=== PATIENT | female | born 1950 | race Caucasian/White ===

== ENCOUNTER 2017-04-06 00:44 | Inpatient (IN) | payer OTHER, MEDICAID, MEDICARE ==
[2017-04-06] VITALS (14 sets, daily range): BP systolic 100–206; BP diastolic 66–91; PULSE 60–85; RESP 16–18; TEMP 96.2–98.1; O2SAT 95–100
[~2017-04-06] VITALS: Ht 165.1 cm; Wt 91.0 kg
[2017-04-06] MEDS ORDERED: SODIUM CHLOR 0.9% 1000 ML INJ 1,000 ML IV ONE (00:57)
--- NOTE | 2017-04-06 01:04 | PD ---
HPI Chief Complaint: Stroke Alert Time Seen by Provider: 00:48 Travel History International Travel<30 days: No Contact w/Intl Traveler<30days: No Traveled to known affect area: No History of Present Illness HPI The patient was seen and examined in the presence of the nurse. This patient presents as a stroke alert. She was in her normal state of health talking on the phone approximately 30 minutes ago and started slurring her words. She is not having any other deficit or complaint. No weakness or change in her baseline diabetic neuropathy. No confusion or headache. No priors to stroke. She has been off any medication for one year. She is hypertensive and type II diabetic. Accu-Chek 340. Systolic blood pressure 192. Symptoms severity is moderate. Duration 30 minutes. No alleviating factors. PFSH Social History Alcohol Use: No Tobacco Use: No Substance Use: No Allergies-Medications (Allergen,Severity, Reaction): Coded Allergies: Penicillins (Verified Allergy, Unknown, 04/06/17) azithromycin (Verified Allergy, Unknown, 04/06/17) sulfamethoxazole (Verified Allergy, Unknown, 04/06/17) trimethoprim (Verified Allergy, Unknown, 04/06/17) Reported Meds & Prescriptions Reported Meds & Active Scripts Active No Active Prescriptions or Reported Medications Review of Systems General / Constitutional: No: Fever Eyes: No: Visual changes HENT: No: Headaches Cardiovascular: No: Chest Pain or Discomfort Respiratory: No: Shortness of Breath Gastrointestinal: No: Abdominal Pain Genitourinary: No: Dysuria Musculoskeletal: No: Pain Skin: No Rash Neurologic: Positive: Slurred Speech, No: Weakness Psychiatric: No: Depression Endocrine: No: Polydipsia Hematologic/Lymphatic: No: Easy Bruising Physical Exam Narrative GENERAL: Well-nourished, well-developed patient in no apparent distress. SKIN: Focused skin assessment reveals no rash and nodules. Skin is Warm and dry. HEAD: Atraumatic. Normocephalic. EYES: Pupils equal and round. No scleral icterus. No injection or drainage. ENT: No nasal bleeding or discharge. Mucous membranes pink and moist. NECK: Trachea midline. No JVD. CARDIOVASCULAR: Regular rate and rhythm. No murmur appreciated. RESPIRATORY: No accessory muscle use. Clear to auscultation. Breath sounds equal bilaterally. GASTROINTESTINAL: Abdomen soft, non-tender, nondistended. Hepatic and splenic margins not palpable. MUSCULOSKELETAL: No obvious deformities. No clubbing. No cyanosis. No edema. NEUROLOGICAL: Awake and alert. No obvious cranial nerve deficits. Motor grossly within normal limits. Has noticeable slurring of speech. She does have sensation to sharp and light touch in the feet PSYCHIATRIC: Appropriate mood and affect; insight and judgment normal. Data Data Last Documented VS Vital Signs Date Time Temp Pulse Resp B/P (MAP) Pulse Ox O2 Delivery O2 Flow Rate FiO2 04/06/17 00:58 99 21 04/06/17 00:50 89 Nasal Cannula 2.[address] Brain W/O Iv Contrast(Rout) (04/06/17 ) Diet Npo (04/06/17 Breakfast) Activity Bed Rest (04/06/17 ) Electrocardiogram (04/06/17 ) I-Stat Creatinine (04/06/17 00:57) I-Stat Profile (04/06/17 00:57) Prothrombin Time / Inr (Pt) (04/06/17 00:57) Act Partial Throm Time (Ptt) (04/06/17 00:57) Complete Blood Count With Diff (04/06/17 00:57) Fibrinogen (04/06/17 00:57) Ua Includes Microscopic (04/06/17 00:57) Drug Screen, Random Urine (04/06/17 00:57) Consult Neurology (04/06/17 ) Blood Glucose (04/06/17 00:57) Ecg Monitoring (04/06/17 00:57) Neuro Checks Q2HX12,Q4H (04/06/17 00:57) Nursing Bedside Swallow Assess .ONCE (04/06/17 00:57) Iv Access Insert/Monitor (04/06/17 00:57) NPO (04/06/17 00:57) Oximetry (04/06/17 00:57) Oxygen Administration (04/06/17 00:57) Sodium Chlor 0.9% 1000 Ml Inj (Ns 1000 M (04/06/17 00:57) Resp Oxygen Vaibhav C Titrat 1-4 L (04/06/17 00:57) Creatine Kinase (Cpk) (04/06/17 01:03) Troponin I (04/06/17 01:03) Aspirin Supp (Aspirin Supp) (04/06/17 01:15) Insulin Human Regular Inj (Novolin R Inj (04/06/17 01:15) (Hub Use Only)Inp Phy Cons/Ref (04/06/17 ) Place In Observation (04/06/17 ) Vital Signs (Adult) Q2HX12,Q4H (04/06/17 02:06) Nih Stroke Scale - Nihss .Daily (04/06/17 02:06) Neuro Checks Q2HX12,Q4H (04/06/17 02:06) Notify Dr: Other (04/06/17 02:06) Remove Urinary Catheter .ONCE (04/06/17 02:06) Case Management Consult (04/06/17 ) Activity Oob Ad Gretta (04/06/17 02:06) Nursing Bedside Swallow Assess .ONCE (04/06/17 02:06) Scd Bilateral/Knee High ANTONIO.QSHIFT (04/06/17 02:06) Hemoglobin (Hgb) A1c (04/06/17 02:06) Lipid Profile (04/07/17 06:00) ^ Hold Medication (04/06/17 02:06) Sodium Chloride 0.9% Flush (Ns Flush) (04/06/17 09:00) Sodium Chloride 0.9% Flush (Ns Flush) (04/06/17 02:15) Bedside Glucose ANTONIO.AC&HS (04/06/17 02:06) ^ Discontinue Insulin Orders (04/06/17 02:06) Insulin Aspart Supplemtl Scale (Novolog (04/06/17 07:00) Dextrose 50% In Dale (Vial) Inj (D50w (Vi (04/06/17 02:15) Glucagon Inj (Glucagon Inj) (04/06/17 02:15) [employer]orer [employer] / Telemetry ANTONIO.Q8H (04/06/17 02:06) Consult Stoke Navigator (04/06/17 ) Admit Order (Ed Use Only) (04/06/17 02:11) Labs Laboratory Tests Test 04/06/17 00:45 04/06/17 01:23 White Blood Count 12.0 TH/MM3 Red Blood Count 5.40 MIL/MM3 Hemoglobin 16.1 GM/DL Bedside Hemoglobin 15.6 G/DL Hematocrit 47.0 % Bedside Hematocrit 46.0 % Mean Corpuscular Volume 87.2 FL Mean Corpuscular Hemoglobin 29.8 PG Mean Corpuscular Hemoglobin Concent 34.2 % Red Cell Distribution Width 13.4 % Platelet Count 171 TH/MM3 Mean Platelet Volume 9.7 FL CBC Comment AUTO DIFF Differential Total Cells Counted 100 Neutrophils % (Manual) 42 % Lymphocytes % 49 % Monocytes % 4 % Eosinophils % 3 % Basophils % 1 % Neutrophils # (Manual) 5.2 TH/MM3 Metamyelocytes 1 % Differential Comment FINAL DIFF MANUAL Smudge Cells PRESENT Platelet Estimate NORMAL Platelet Morphology Comment NORMAL Red Cell Morphology Comment NORMAL Bedside Sodium 135 MMOL/L Bedside Potassium 4.0 MMOL/L Bedside Chloride 104 MMOL/L Bedside Blood Urea Nitrogen 8 MG/DL Bedside Creatinine 0.6 MG/DL Bedside Glucose 322 MG/DL Prothrombin Time 9.9 SEC Prothromb Time International Ratio 0.9 RATIO Activated Partial Thromboplast Time 22.6 SEC Fibrinogen 330 mg/dL Total Creatine Kinase 51 U/L Troponin I LESS THAN 0.02 NG/ML MDM Medical Decision Making Medical Screen Exam Complete: Yes Emergency Medical Condition: Yes Medical Record Reviewed: Yes Differential Diagnosis CVA, TIA, overmedication Narrative Course I have reviewed the patient's electronic medical record. I ordered a stroke alert protocol Patient went emergently to CT I reviewed with neurologist Dr. Krishnamurthy He does not recommend TPA Symptoms are isolated to speech slurring with no motor weakness Brain CT is negative CBC is normal Metabolic profile is normal Coagulation studies are normal I reviewed her EKG which shows sinus rhythm without ectopy Extended cardiac monitoring shows sinus rhythm without ectopy Patient will require admission for stroke evaluation. I gave her rectal aspirin and 8 units IV regular insulin Discussed with hospitalist will admit Critical Care Narrative Aggregate critical care time was 35 minutes. Time to perform other separately billable procedures was not included in the critical care time. My time did not include minutes spent treating any other patients simultaneously or on activities that did not directly contribute to the patient's treatment. The services I provided to this patient were to treat and/or prevent clinically significant deterioration that could result in: Brain stem herniation, cardiopulmonary arrest, permanent neurologic deficit I provided critical care services requiring my management, as noted below: Chart data review, documentation time, medication orders and management, vital sign assessments/reviewing monitor data, ordering and reviewing lab tests, ordering and interpreting/reviewing x-rays and diagnostic studies, care of the patient and discussion of the patient with the admitting physicians. Diagnosis Primary Impression: Ischemic cerebrovascular accident (CVA) of frontal lobe Additional Impressions: Accelerated hypertension Hyperglycemia due to type 2 diabetes mellitus Qualified Codes: E11.65 - Type 2 diabetes mellitus with hyperglycemia Admitting Information Admitting Physician Requests: Admit Scripts No Active Prescriptions or Reported Meds Dorian Riley MD Apr 06, 2017 01:04
[2017-04-06 01:07] LABS: MEAN CELL VOLUME 87.2 FL (80.0-100.0); MEAN CORPUSCULAR HEMOGLOBIN 29.8 PG (27.0-34.0); MEAN CORPUSCULAR HGB CONC 34.2 % (32.0-36.0); PLATELET COUNT 171 TH/MM3 (150-450); RED CELL DISTRIBUTION WIDTH 13.4 % (11.6-17.2)
[2017-04-06 01:09] LABS: HEMO FLAGS AUTO DIFF
--- NOTE | 2017-04-06 01:09 | RADRPT ---
EXAM DATE/TIME: 04/06/2017 00:55 [facility] COMPARISON: No previous studies available for comparison. INDICATIONS : Stroke Alert. Slurred speech. RADIATION DOSE: 36.65 CTDIvol (mGy) MEDICAL HISTORY : Hypertension. Diabetes mellitus type 2. Deep venous thrombosis. SURGICAL HISTORY : None. ENCOUNTER: Initial ACUITY: 1 day PAIN SCALE: 0/10 LOCATION: cranial TECHNIQUE: Multiple contiguous axial images were obtained of the head. Using automated exposure control and adj ustment of the mA and/or kV according to patient size, radiation dose was kept as low as reasonably a chievable to obtain optimal diagnostic quality images. DICOM format image data is available electro nically for review and comparison. FINDINGS: CEREBRUM: The ventricles are normal for age. No evidence of midline shift, mass lesion, hemorrhage or acute in farction. No extra-axial fluid collections are seen. POSTERIOR FOSSA: The cerebellum and brainstem are intact. The 4th ventricle is midline. The cerebellopontine angle i s unremarkable. EXTRACRANIAL: The visualized portion of the orbits is intact. SKULL: The calvaria is intact. No evidence of skull fracture. CONCLUSION: 1. No acute intracranial abnormalities. Findings called by Dr. Bolton to Dr. Riley at 1:06am. Hosea Bolton MD on April 06, 2017 at 1:02 Board Certified Radiologist. This report was verified electronically.
[2017-04-06] MEDS ORDERED: INSULIN HUMAN REGULAR 1,000 UNITS/10 ML VIAL IV PUSH ONE (01:15)
[2017-04-06] MEDS ORDERED: ASPIRIN 300 MG SUPP RECTAL ONE (01:15)
[2017-04-06 01:44] LABS: APTT (PATIENT) 22.6 SEC (24.3-30.1); INTERNATIONAL NORMALIZED RATIO 0.9 RATIO; PROTHROMBIN TIME - PATIENT 9.9 SEC (9.8-11.6)
[2017-04-06 01:44] LABS: BASOPHILS 1 % (0-2); EOSINOPHILS 3 % (0-4); METAMYELOCYTES 1 % (0-1); NEUTROPHIL # MANUAL DIFF 5.2 TH/MM3 (1.8-7.7); POLYS (SEG NEUTROPHILS) 42 % (16-70); SCAN/DIFF FINAL DIFF MANUAL; WBC DIFF SAMPLE 100
[2017-04-06 01:45] LABS: SMUDGE CELLS PRESENT PRESENT
[2017-04-06 01:46] LABS: PLATELET ESTIMATE SMEAR NORMAL (NORMAL); PLATELET MORPHOLOGY NORMAL (NORMAL)
[2017-04-06 01:51] LABS: CREATINE KINASE 51 U/L (26-192)
[2017-04-06] MEDS ORDERED: GLUCAGON 1 MG/ML VIAL OTHER PRN (02:15)
[2017-04-06] MEDS ORDERED: SODIUM CHLORIDE 0.9% FLUSH 5 ML FLUSH IV FLUSH PRN (02:15)
[2017-04-06] MEDS ORDERED: DEXTROSE 50% IN WATER 50 ML VIAL(D50) IV PUSH PRN (02:15)
[2017-04-06 03:00] LABS: BACTERIA, URINE MOD /hpf; BLOOD, URINE NEG (NEG); GLUCOSE,URINE 1000 mg/dL (NEG); KETONE, URINE 10 mg/dL (NEG); MUCUS URINE FEW /lpf (OCC); NITRITE,URINE POS (NEG); PH, URINE 5.5 (5.0-8.5); SQUAMOUS EPITHELIAL CELL URINE 1 /hpf (0-5); URINE COLOR YELLOW (YELLW/STRAW)
--- NOTE | 2017-04-06 04:10 | HHI.HP ---
HPI Service [facility] Primary Care Physician No Primary Care Physician Admission Diagnosis Acute ischemic CVA Diagnoses: Chief Complaint: slurred speech Travel History International Travel<30 Days: No Contact w/Intl Traveler <30 Da: No Traveled to Known Affected Are: No History of Present Illness Written by MARVIN Mendes acting as scribe for [Andre] on 04/06/17 at 04: 01. 66 y/o female with a history of HTN, HLD and DM, off medications for 1 year presented to the ED with slurred speech. She states about 11:30 tonight she began to have slurred speech and tingling in her cheeks. She states recently she has had pain in her right eye, intermittently, but no vision loss. She denies any weakness in her extremities, chest pain, sob, fever or chills. She states she moved here 1 year ago and that is when she stopped taking all her medications. Review of Systems Except as stated in HPI: all other systems reviewed are Neg Past Family Social History Past Medical History HTN DM HLD Past Surgical History Common bile duct stent Cholecystectomy Back surgery x 2 elbow surgery hysterectomy from ectopic Bladder repair Seizures as a child Reported Medications Reported Meds & Active Scripts Active No Active Prescriptions or Reported Medications Allergies: Coded Allergies: nitrofurantoin (Verified Allergy, Intermediate, hives, 04/06/17) Penicillins (Verified Allergy, Unknown, 04/06/17) azithromycin (Verified Allergy, Unknown, 04/06/17) sulfamethoxazole (Verified Allergy, Unknown, 04/06/17) trimethoprim (Verified Allergy, Unknown, 04/06/17) Uncoded Allergies: erythromycin (Allergy, Intermediate, hives, 04/06/17) Active Ordered Medications Current Medications Medications (Trade) Dose Ordered Sig/[place] Route Start Time Stop Time Status Last Admin Sodium Chloride 1,000 ml @ 70 mls/hr [id number] ONCE IV 04/06/17 00:57 04/06/17 15:14 04/06/17 00:57 (NS Flush) 2 ml BID IV FLUSH 04/06/17 09:00 (NS Flush) 2 ml UNSCH PRN IV FLUSH 04/06/17 02:15 (NovoLOG SUPPLEMENTAL SCALE) 1 ACHS SQ 04/06/17 07:00 (D50w (Vial) Inj) 50 ml UNSCH PRN IV PUSH 04/06/17 02:15 (Glucagon Inj) 1 mg UNSCH PRN OTHER 04/06/17 02:15 Family History Sister: breast cancer and ovarian cancer Social History Tobacco use: Quit 15 years ago Alcohol use: Denies Physical Exam Vital Signs Vital Signs Date Time Temp Pulse Resp B/P (MAP) Pulse Ox O2 Delivery O2 Flow Rate FiO2 04/06/17 02:36 100 2.00 04/06/17 02:00 82 18 169/71 (103) 99 Nasal Cannula 2.00 04/06/17 01:00 85 16 206/91 (129) 100 Nasal Cannula 2.00 04/06/17 00:58 99 21 04/06/17 00:54 100 21 04/06/17 00:50 89 100 Nasal Cannula 2.00 04/06/17 00:50 99 Nasal Cannula 2.00 Physical Exam GENERAL: This is a well-nourished, well-developed patient, in no apparent distress. SKIN: No rashes, ecchymoses or lesions. Cool and dry. HEAD: Atraumatic. Normocephalic. EYES: Pupils equal round and reactive. Extraocular motions intact. ENT: Nose without bleeding, purulent drainage or septal hematoma. Airway patent. NECK: Trachea midline. No JVD or lymphadenopathy. Supple, nontender, no meningeal signs. CARDIOVASCULAR: Regular rate and rhythm without murmurs, gallops, or rubs. RESPIRATORY: Clear to auscultation. Breath sounds equal bilaterally. No wheezes , rales, or rhonchi. GASTROINTESTINAL: Abdomen soft, non-tender, nondistended. No hepato-splenomegaly , or palpable masses. No guarding. MUSCULOSKELETAL: Extremities without clubbing, cyanosis, or edema. No joint tenderness, effusion, or edema noted. No calf tenderness. NEUROLOGICAL: Awake and alert. Cranial nerves II through XII intact. Motor and sensory grossly within normal limits. Five out of 5 muscle strength in all muscle groups. Slurred speech. Laboratory Laboratory Tests Test 04/06/17 00:45 04/06/17 01:23 04/06/17 02:46 White Blood Count 12.0 Red Blood Count 5.40 Hemoglobin 16.1 Bedside Hemoglobin 15.6 Hematocrit 47.0 Bedside Hematocrit 46.0 Mean Corpuscular Volume 87.2 Mean Corpuscular Hemoglobin 29.8 Mean Corpuscular Hemoglobin Concent 34.2 Red Cell Distribution Width 13.4 Platelet Count 171 Mean Platelet Volume 9.7 CBC Comment AUTO DIFF Differential Total Cells Counted 100 Neutrophils % (Manual) 42 Lymphocytes % 49 Monocytes % 4 Eosinophils % 3 Basophils % 1 Neutrophils # (Manual) 5.2 Metamyelocytes 1 Differential Comment FINAL DIFF MANUAL Smudge Cells PRESENT Platelet Estimate NORMAL Platelet Morphology Comment NORMAL Red Cell Morphology Comment NORMAL Bedside Sodium 135 Bedside Potassium 4.0 Bedside Chloride 104 Bedside Blood Urea Nitrogen 8 Bedside Creatinine 0.6 Bedside Glucose 322 Prothrombin Time 9.9 Prothromb Time International Ratio 0.9 Activated Partial Thromboplast Time 22.6 Fibrinogen 330 Total Creatine Kinase 51 Troponin I LESS THAN 0.02 Urine Color YELLOW Urine Turbidity HAZY Urine pH 5.5 Urine Specific Viper 1.019 Urine Protein NEG Urine Glucose (UA) 1000 Urine Ketones 10 Urine Occult Blood NEG Urine Nitrite POS Urine Bilirubin NEG Urine Urobilinogen LESS THAN 2.0 Urine Leukocyte Esterase SMALL Urine RBC 2 Urine WBC 24 Urine Squamous Epithelial Cells 1 Urine Bacteria MOD Urine Mucus FEW Urine Opiates Screen NEG Urine Barbiturates Screen NEG Urine Amphetamines Screen NEG Urine Benzodiazepines Screen NEG Urine Cocaine Screen NEG Urine Cannabinoids Screen NEG Result Diagram: 04/06/17 0045 Imaging Last Impressions Head CT 04/06/17 0000 Signed Impressions: Service Date/Time: March 00:55 - CONCLUSION: 1. No acute intracranial abnormalities. Findings called by Dr. Bolton to Dr. Riley at 1:06am. MD Latasha Gallegoi VTE Risk Assessment Caprini VTE Risk Assessment: Mod/High Risk (score >= 2) Caprini Risk Assessment Model Point Value = 1 Point Value = 2 Point Value = 3 Point Value = 5 Age 41-60 Minor surgery BMI > 25 kg/m2 Swollen legs Varicose veins or History of unexplained or recurrent spontaneous Oral contraceptives or hormone replacement Sepsis (< 1 month) Serious lung disease, including pneumonia (< 1 month) Abnormal pulmonary function Acute myocardial infarction Congestive heart failure (< 1 month) History of inflammatory bowel disease Medical patient at bed rest Age 61-74 Arthroscopic surgery Major open surgery (> 45 min) Laparoscopic surgery (> 45 min) Malignancy Confined to bed (> 72 hours) Immobilizing plaster cast Central venous access Age >= 75 History of VTE Family history of VTE Factor V Leiden Prothrombin [id number] Lupus anticoagulant Anticardiolipin antibodies Elevated serum homocysteine Heparin-induced thrombocytopenia Other congenital or acquired thrombophilia Stroke (< 1 month) Elective arthroplasty Hip, pelvis, or leg fracture Acute spinal cord injury (< 1 month) Prophylaxis Regimen Total Risk Factor Score Risk Level Prophylaxis Regimen 0-1 Low Early ambulation 2 Moderate Order ONE of the following: *Sequential Compression Device (SCD) *Heparin 5000 units SQ BID 3-4 Higher Order ONE of the following medications: *Heparin 5000 units SQ TID *Enoxaparin/Lovenox 40 mg SQ daily (WT < 150 kg, CrCl > 30 mL/min) *Enoxaparin/Lovenox 30 mg SQ daily (WT < 150 kg, CrCl > 10-29 mL/min) *Enoxaparin/Lovenox 30 mg SQ BID (WT < 150 kg, CrCl > 30 mL/min) AND/OR *Sequential Compression Device (SCD) 5 or more Highest Order ONE of the following medications: *Heparin 5000 units SQ TID (Preferred with Epidurals) *Enoxaparin/Lovenox 40 mg SQ daily (WT < 150 kg, CrCl > 30 mL/min) *Enoxaparin/Lovenox 30 mg SQ daily (WT < 150 kg, CrCl > 10-29 mL/min) *Enoxaparin/Lovenox 30 mg SQ BID (WT < 150 kg, CrCl > 30 mL/min) AND *Sequential Compression Device (SCD) Assessment and Plan Problem List: (1) Hyperglycemia due to type 2 diabetes mellitus ICD Code: E11.65 - Type 2 diabetes mellitus with hyperglycemia Status: Acute (2) Accelerated hypertension ICD Code: I10 - Essential (primary) hypertension Status: Acute (3) Ischemic cerebrovascular accident (CVA) of frontal lobe ICD Code: I63.9 - Cerebral infarction, unspecified Status: Acute Assessment and Plan 66 y/o female with a history of HTN, HLD and DM, off medications for 1 year presented to the ED with slurred speech. CVA, patient with slurred speech Head CT reviewed and is unremarkable -Consult neurology -MRI/MRA ordered -2D echo ordered -US carotids ordered -ASA daily -PT/OT/ST Hyperglycemia, BS 340 on admission -Accu checks with SSI -HGB A1C Accelerated HTN -Allow permissive HTN for now -Patient will need PB meds before discharge -Monitor vitals DVT prophylaxis: Lovenox This note was transcribed by scribe [Liana Villagran]. I, Dr. Jerzy Powell personally performed the history, physical exam, and medical decision making; and confirmed the accuracy of the information in the transcribed note. Authenticated by Dr. Jerzy Powell on 04/06/17 at 04:01. changed to full admit- pt has persistent slurred speech, CVA, rather than TIA Discussed Condition With Patient and ED physician Problem Qualifiers (1) Hyperglycemia due to type 2 diabetes mellitus: Qualified Codes: E11.65 - Type 2 diabetes mellitus with hyperglycemia Liana Villagran Apr 06, 2017 04:09 Jerzy oPwell MD Apr 07, 2017 08:13
[2017-04-06] MEDS: ENOXAPARIN SODIUM 40 MG/0.4 ML SYRINGE SQ SCH (06:45)
[2017-04-06] MEDS: INSULIN ASPART SUPPLEMENTAL SCALE SQ SCH ×4 (06:54→21:06)
[2017-04-06] MEDS: SODIUM CHLORIDE 0.9% FLUSH 5 ML FLUSH IV FLUSH SCH ×2 (09:00→21:00)
[2017-04-06] MEDS: ASPIRIN EC 325 MG TABEC PO SCH (09:11)
[2017-04-06] MEDS: SODIUM CHLOR 0.9% 1000 ML INJ 1,000 ML IV SCH ×2 (09:13→22:33)
--- NOTE | 2017-04-06 09:28 | RADRPT ---
EXAM DATE/TIME: 04/06/2017 08:36 [facility] COMPARISON: No previous studies available for comparison. INDICATIONS : Cerebrovascular accident. Stroke alert patient with slurred speech. MEDICAL HISTORY : Hypercholesterolemia. Hypertension. Deep vein thrombosis. COPD. Asthma. Diabetes. Post traumatic st ress disorder. Depression. Claustrophobia. SURGICAL HISTORY : Bladder repair. Back surgery. ENCOUNTER: Initial ACUITY: 1 day PAIN SCORE: 0/10 LOCATION: Bilateral neck PEAK SYSTOLIC VELOCITIES (cm/sec): ICA/CCA RATIO: Right: 0.8 Left: 1.3 ICA: Right: 77 Left: 113 CCA: Right: 99 Left: 85 ECA: Right: 107 Left: 130 VERTEBRAL: Right: 36 antegrade Left: 54 antegrade Elevated flow velocities and ICA/CCA ratios have been found to correlate with increased degrees of vessel stenosis, calculated as percentage of diameter relative to a normal segment of distal ICA/CCA FINDINGS: RIGHT CAROTID: No significant stenosis is visualized. Mild plaque is present. The waveforms are within normal limits . LEFT CAROTID: No significant stenosis is visualized. Mild plaque is present. The waveforms are within normal limits . VERTEBRAL ARTERIES: Antegrade flow is seen in both vertebral arteries. MISCELLANEOUS: None. CONCLUSION: Mild bilateral plaque with no evidence of stenosis. Larry Christine MD on April 06, 2017 at 9:25 Board Certified Radiologist. This report was verified electronically.
--- NOTE | 2017-04-06 10:18 | MB ---
cc: CRUMTEREZA DATE OF CONSULTATION: 04/06/2017 HISTORY OF PRESENT ILLNESS A 66-year-old right-handed woman with hypertension, non-insulin diabetes, hypercholesterolemia, fatty liver, stent in her bile duct. About 11:30 last night she felt like her mouth got dry and had some slurred speech which lasted about 7 hours, just seemed to clear up this morning. She also had some numbness on both sides of her face. REVIEW OF SYSTEMS She denied any MO, CABG, stent, angioplasty, atrial fibrillation, Coumadin. She does not take any blood thinners, not even an aspirin a day. No renal or pulmonary, thyroid, lupus, ulcer, cancer, seizure or stroke history. She had some right eye pain by the chart but not currently. She moved here about a year ago. Stopped taking medicines at that time. SOCIAL HISTORY Nonsmoker or drinker, lives by herself, just moved to [place] recently. FAMILY HISTORY Positive for cancer, negative for seizure or stroke. She has not started any new medicines. PAST MEDICAL HISTORY As above also: 1. Bladder repair. 2. By the chart seizures as a child. 3. Back surgery x2. ALLERGIES PENICILLIN, AZITHROMYCIN, SULFA, BACTRIM. MEDICATIONS No medications. PHYSICAL EXAMINATION VITAL SIGNS: 206/91 initially, now 152/66. NECK: No carotid bruits. HEART: Regular rhythm. I do not detect a murmur. NEURO: Pupils are equal, looks like she has had some cataract surgery in the past. Visual cash are full. Extraocular movements intact without nystagmus. Face is symmetric with normal sensation. Tongue was midline. There is no drift. She had normal strength in upper and lower extremities bilaterally. DTRs are 1-2 in the knees bilaterally, maybe a little bit hypo-reflexive on the left knee compared to the right. Toes are downgoing bilaterally. Pinprick and vibratory sense are intact throughout except for some minimal distal pinprick loss in the feet. She says she has neuropathy. She has very coarse tremor on trying to do finger to nose bilaterally, a little bit worse on the right than the left, however, when I did have her hold up her hand she did not another time. Speech is a little bit hesitant, a little bit hoarse but not aphasic at this time. LABORATORY DATA White count was 12, hemoglobin 16, hematocrit 47, platelet count 171. Urine drug screen negative. UA small out of leuko-esterase, 24 white cells, over 1000 glucose. Basic metabolic profile glucose was 322, otherwise normal. Troponin negative. Coags normal. IMAGING STUDIES CAT scan of the brain is normal. EKG Initially showed sinus rhythm. IMPRESSION Possibly TIA. The unusual aspect is this coarse tremor and she had some tingling on both sides of her face. She says she has not tried any new medications. She does not have a psyche history. Will do a stroke workup and just treat her with an aspirin for now. I will be following her with you in the hospital. If she has a UTI, would recommend treating that. She needs better glucose control. MD CHE Caraballo/TLL /9:09 AM /9:53 AM
[2017-04-06] MEDS ORDERED: cefTRIAXone INJ 1,000 MG in SODIUM CHLORIDE 0.9% INJ 100 ML IV SCH (13:00)
--- NOTE | 2017-04-06 13:02 | HHI.PR ---
Addendum to Inpatient Note Addendum Reason: Additional Documentation Additional Information UTI >>start rocephin Inc AST/ALT>> liver U/S chol 322>> hold on statin due to inc LFT Vitor Lunsford MD Apr 06, 2017 13:02
[2017-04-06 13:19] LABS: FREE T4 1.13 NG/DL (0.76-1.46); HDL CHOLESTEROL 54.2 MG/DL (40.0-60.0)
--- NOTE | 2017-04-06 15:51 | RADRPT ---
EXAM DATE/TIME: 04/06/2017 14:39 [facility] COMPARISON: No previous studies available for comparison. INDICATIONS : Abnormal labs. MEDICAL HISTORY : Hypercholesterolemia. Chronic obstructive pulmonary disease. Deep venous thrombosis. Hypertension. As thma. Diabetes. SURGICAL HISTORY : Hysterectomy. Cholecystectomy. Bladder repair. Back surgery. ENCOUNTER: Initial ACUITY: 1 day PAIN SCORE: 0/10 LOCATION: Bilateral upper quadrant .Abnormal MEASUREMENTS: LIVER: 15.3 cm length COMMON DUCT: 6 mm RIGHT KIDNEY: 12.4 x 4.8 x 5.2 cm SPLEEN: 11.6 cm length FINDINGS: LIVER: Normal echotexture without focal lesion or ductal dilatation. COMMON DUCT: No intraluminal mass or stone visualized. GALLBLADDER: Surgically absent PANCREAS: The visualized portions are within normal limits. RIGHT KIDNEY: No hydronephrosis, stone or mass. SPLEEN: Upper limits of normal size without focal mass CONCLUSION: Focally unremarkable sonographic appearance of the liver Narayan Pham MD on April 06, 2017 at 15:46 Board Certified Radiologist. This report was verified electronically.
--- NOTE | 2017-04-06 16:25 | ECHRPT ---
Indication: cva/tia CONCLUSIONS Normal left ventricular size. Wall thickness is normal. The left ventricular systolic function is low normal with an estimated ejection fraction in the rang e of 50- 55%. Trace mitral valve regurgitation. There is trace tricuspid valve regurgitation. The estimated pulmonary arterial pressure is 35 mmHg. BP: 186 / 83 HR: 62 Rhythm: Sinus MEASUREMENTS (Male / Female) Normal Values Technical Quality:Good 2D ECHO LV Diastolic Diameter PLAX 4.1 cm 4.2 - 5.9 / 3.9 - 5.3 cm LV Systolic Diameter PLAX 2.9 cm IVS Diastolic Thickness 0.8 cm 0.6 - 1.0 / 0.6 - 0.9 cm LVPW Diastolic Thickness 0.7 cm 0.6 - 1.0 / 0.6 - 0.9 cm LV Relative Wall Thickness 0.4 LA Systolic Diameter LX 3.3 cm 3.0 - 4.0 / 2.7 - 3.8 cm LV Ejection Fraction MOD 4C 50.0 % LV Cardiac Index MOD 4C 1078.8 cm/minm LV Ejection Fraction 4C AL 51.4 % LV Cardiac Index 4C AL 1172.7 cm/minm M-MODE Aortic Root Diameter MM 2.2 cm AV Cusp Separation MM 1.5 cm DOPPLER Mitral E Point Velocity 101.0 cm/s Mitral A Point Velocity 82.9 cm/s Mitral E to A Ratio 1.2 LV E' Lateral Velocity 8.8 cm/s Mitral E to LV E' Lateral Ratio 11.5 LV E' Septal Velocity 6.7 cm/s Mitral E to LV E' Septal Ratio 15.0 TR Peak Velocity 295.0 cm/s TR Peak Gradient 34.8 mmHg FINDINGS LEFT VENTRICLE Normal left ventricular size. Wall thickness is normal. The left ventricular systolic function is low normal with an estimated ejection fraction in the rang e of 50- 55%. RIGHT VENTRICLE Normal right ventricular size and systolic function. LEFT ATRIUM The left atrial size is normal. RIGHT ATRIUM The right atrial size is normal. ATRIAL SEPTUM Normal atrial septal thickness without atrial level shunting by limited color doppler interrogation. AORTA The aortic root and proximal ascending aorta are normal in size on limited imaging. MITRAL VALVE Trace mitral valve regurgitation. AORTIC VALVE Trileaflet aortic valve. No aortic valve stenosis or regurgitation. TRICUSPID VALVE There is trace tricuspid valve regurgitation. The estimated pulmonary arterial pressure is 35 mmHg. PULMONARY VALVE The pulmonary valve is not well visualized. VESSELS The inferior vena cava is normal in size. PERICARDIUM No pericardial effusion. Davy Aguilar MD, FACC (Electronically Signed) Final Date:06 April 2017 16:24
[2017-04-06 17:00] LABS: HEMOGLOBIN A1a 1.3 %; HEMOGLOBIN A1b 1.1 %; HEMOGLOBIN Ao 75.3 %; HEMOGLOBIN F 2.1 %; HEMOGLOBIN LA1C 3.2 %
[2017-04-06] MEDS: LEVOFLOXACIN 500 MG PREMIX INJ 100 ML IV SCH (18:31)
[2017-04-06] MEDS ORDERED: GADODIAMIDE PF 287 MG/ML 20 ML VIAL (for RAD MRI) IVCONTRAST ONE (20:12)
--- NOTE | 2017-04-06 20:33 | RADRPT ---
EXAM DATE/TIME: 04/06/2017 19:23 [facility] COMPARISON: MRI BRAIN W & W/O CONTRAST, April 06, 2017, 19:23. INDICATIONS : CVA. Slurred speech. MEDICAL HISTORY : Hypertension. Diabetes mellitus type 2. Chronic obstructive pulmonary disease. Asthma. SURGICAL HISTORY : Cholecystectomy. Hysterectomy. Knee surgery, liver stent, back surgeries and bladder repair. ENCOUNTER: Initial ACUITY: 1 day PAIN SCORE: 0/10 LOCATION: Head. Please note a normal MRA of the brain does not entirely exclude the possibility of a small aneurysm, nor the possibility of distal intracranial vessel disease. TECHNIQUE: 3D time of flight MRA was performed. Source images, multiplanar STS MIP, and 3D volume MIP reconstru ctions were reviewed. FINDINGS: There is excellent visualization of the major intracranial arteries out to the second-order branch ve ssels. There is no evidence for aneurysm, vessel truncation or stenosis, and no evidence for vascula r malformation. CONCLUSION: Normal examination. Narayan Galan MD on April 06, 2017 at 20:30 Board Certified Radiologist. This report was verified electronically.
--- NOTE | 2017-04-06 20:36 | RADRPT ---
EXAM DATE/TIME: 04/06/2017 19:23 [facility] COMPARISON: No previous studies available for comparison. INDICATIONS : Stroke. Slurred speech. CONTRAST: 20 cc Omniscan (gadodiamide) IV MEDICAL HISTORY : Hypertension. Diabetes mellitus type 2. Chronic obstructive pulmonary disease. Asthma. SURGICAL HISTORY : Cholecystectomy. Hysterectomy. Back surgery, liver stent, knee surgery, elbow replaced and bladder repair. ENCOUNTER: Initial ACUITY: 1 day PAIN SCORE: 0/10 LOCATION: Head. TECHNIQUE: Multiplanar, multisequence MRI of the brain was performed both prior to and following the administrat ion of paramagnetic contrast. FINDINGS: CEREBRUM: The ventricles are normal for age. No evidence of midline shift, mass lesion, hemorrhage or acute in farction. No extraaxial fluid collections are seen. The pituitary gland and suprasellar cistern are normal in configuration. There is a small 0.6 cm cyst at the medial left temporal lobe likely relate d to a choroidal fissure cyst. WHITE MATTER: No significant signal abnormalities are seen in the white matter. POSTERIOR FOSSA: The cerebellum and brainstem are intact. The 4th ventricle is midline. The cerebellopontine angle is unremarkable. The cerebellar tonsils are normal in position. DIFFUSION IMAGING: No focal areas of restricted diffusion are seen. No evidence of acute infarction. EXTRACRANIAL: The visualized portions of the orbits are unremarkable. There is mucosal disease at the inferior aspe cts of the maxillary sinuses being greater on the left. POST-CONTRAST: No abnormal areas of parenchymal or dural enhancement. No evidence of blood-brain barrier breakdown. CONCLUSION: 1. No intracranial abnormality is seen. 2. Maxillary sinus disease. Narayan Galan MD on April 06, 2017 at 20:32 Board Certified Radiologist. This report was verified electronically.
--- NOTE | 2017-04-06 20:37 | RADRPT ---
EXAM DATE/TIME: 04/06/2017 19:23 [facility] COMPARISON: No previous studies available for comparison. INDICATIONS : Stroke. Slurred speech. CONTRAST: 20 cc Omniscan (gadodiamide) IV MEDICAL HISTORY : Hypertension. Diabetes mellitus type 1. Chronic obstructive pulmonary disease. ASthma. SURGICAL HISTORY : Cholecystectomy. Hysterectomy. Back surgery, liver stent, knee surgery, elbow replaced and bladder repair. ENCOUNTER: Initial ACUITY: 1 day PAIN SCORE: 0/10 LOCATION: Head. Percent stenosis is calculated using the diameter of the stenotic region over the diameter of the nor mal distal internal carotid artery. TECHNIQUE: Bolus infused MRA of the extracranial circulation was performed using a neurovascular coil. Post pro cessing was performed including rotating subvolume maximum intensity projections of each carotid ibrahima ry, rotating full volume maximum intensity projections of both carotid arteries, sagittal and coronal sliding thin slab reformations of each carotid artery, and left oblique sliding thin slab reformatio n through the aortic arch to include the origin of the arch branch vessels. FINDINGS: AORTIC ARCH: There is a three vessel origin of the great vessels from the aorta. No evidence of ostial narrowing. RIGHT CAROTID: The common carotid artery is intact. The carotid bulb has a normal configuration without ulceration or narrowing. The internal carotid artery lumen is smooth without stenosis. The external carotid ar mao is intact. LEFT CAROTID: The common carotid artery is intact. The carotid bulb has a normal configuration without ulceration or narrowing. There is minimal narrowing at the proximal left internal carotid artery without signif icant stenosis. The external carotid artery is intact. VERTEBRALS: The vertebral arteries have a symmetric diameter. No stenotic lesions are seen. CONCLUSION: Minimal narrowing at the proximal left internal carotid artery without significant stenosis. Narayan Galan MD on April 06, 2017 at 20:34 Board Certified Radiologist. This report was verified electronically.
[2017-04-07] VITALS (9 sets, daily range): BP systolic 123–224; BP diastolic 58–88; PULSE 58–89; RESP 16–20; TEMP 96.2–97.9; O2SAT 93–96
--- NOTE | 2017-04-07 05:42 | MG ---
cc: SYMONE ROMO M.D. Lab No: [id number] Date: 04/06/2017 Age: 66 Sex: F Race: DATE OF 1950 AGE [age] years old. EEG NUMBER [id number] REFERRING PHYSICIAN MD [facility] ROOM [id number]. NOTE With photic stimulation. Awake. Admitted for right eye pain and slurred speech. History of DVT, hypertension, diabetes. MEDICATIONS On aspirin, insulin and Lovenox. DESCRIPTION RECORD Somewhat of a low attenuated background. Some mild slowing at 6 Hz. The slowing is symmetrical. There is some superimposed eye and muscle artifact. With photic stimulation there is a minimal driving response, however, no gross epileptic activity is noted. IMPRESSION Mild slowing may be due to somnolence versus encephalopathic state without any epileptiform features. Clinical correlation. Symone Romo MD DF/BHAVANI /8:23 PM /5:31 AM
[2017-04-07] MEDS: ENOXAPARIN SODIUM 40 MG/0.4 ML SYRINGE SQ SCH (05:47)
[2017-04-07] MEDS: INSULIN ASPART SUPPLEMENTAL SCALE SQ SCH ×4 (05:48→21:31)
[2017-04-07] MEDS: ASPIRIN EC 325 MG TABEC PO SCH (08:26)
[2017-04-07] MEDS: SODIUM CHLORIDE 0.9% FLUSH 5 ML FLUSH IV FLUSH SCH ×2 (08:27→21:00)
[2017-04-07 08:40] LABS: HDL CHOLESTEROL 42.5 MG/DL (40.0-60.0)
--- NOTE | 2017-04-07 08:58 | HHI.PR ---
Subjective Remarks sr Objective Vital Signs Date Time Temp Pulse Resp B/P (MAP) Pulse Ox O2 Delivery O2 Flow Rate FiO2 04/07/17 08:05 96.2 79 19 168/88 (114) 96 04/07/17 04:35 96.6 68 16 144/70 (94) 93 04/07/17 00:40 96.5 67 16 123/58 (79) 93 04/06/17 21:00 63 04/06/17 20:54 96 21 04/06/17 20:40 96.2 60 16 180/83 (115) 95 04/06/17 16:00 97.1 63 18 100/82 (88) 95 04/06/17 12:00 97.0 76 18 142/83 (102) 97 I/O 04/06/17 04/06/17 04/06/17 04/07/17 04/07/17 04/07/17 07:00 15:00 23:00 07:00 15:00 23:00 Intake Total 0 ml 0 ml Balance 0 ml 0 ml Intake Oral 0 ml 0 ml # Voids 3 2 1 # Bowel Movements 0 0 0 Result Diagram: 04/06/17 0045 Objective Remarks speech nl movesa ll well Assessment and Plan Assessment and Plan imp bp up ok to rx to nl mri/a/a nl eeg neg ldl 224 needs STATIN started asa ok holter pend echo nl labs neg ok to dc on asa and statin i will fu holter result ? Keven Lamar MD Apr 07, 2017 08:58
[2017-04-07] MEDS ORDERED: LISINOPRIL 10 MG TAB PO SCH (12:15)
--- NOTE | 2017-04-07 12:23 | EKG ---
Date Performed: 04/06/2017 Time Performed: 01:10:55 PTAGE: 66 years EKG: Normal Sinus rhythm Left ventricular hypertrophy Low voltage NO PREVIOUS TRACING DOCTOR: Kelton Neal Interpretating Date/Time 04/07/2017 12:22:45
[2017-04-07] MEDS: ENALAPRILAT 1.25 MG/ML VIAL IV PUSH PRN (12:49)
[2017-04-07] MEDS: SODIUM CHLOR 0.9% 1000 ML INJ 1,000 ML IV SCH ×2 (12:51→21:32)
--- NOTE | 2017-04-07 12:53 | HHI.PR ---
Subjective Remarks Patient is having whole body jerking movement that has no pattern When I asked her why she is doing that she said probably anxiety Patient told me she had a problem with fatty liver and bile duct stenosis for which she had a stent but she hasn't followed with a doctor in years Her transaminases and alkaline phosphatase significantly increase, statins and is indicated for her however he cannot start statin will do workup for the liver Objective Vitals Vital Signs Date Time Temp Pulse Resp B/P (MAP) Pulse Ox O2 Delivery O2 Flow Rate FiO2 04/07/17 12:10 96.4 89 19 224/88 (133) 95 04/07/17 08:05 96.2 79 19 168/88 (114) 96 04/07/17 04:35 96.6 68 16 144/70 (94) 93 04/07/17 00:40 96.5 67 16 123/58 (79) 93 04/06/17 21:00 63 04/06/17 20:54 96 21 04/06/17 20:40 96.2 60 16 180/83 (115) 95 04/06/17 16:00 97.1 63 18 100/82 (88) 95 I/O 04/06/17 04/06/17 04/06/17 04/07/17 04/07/17 04/07/17 07:00 15:00 23:00 07:00 15:00 23:00 Intake Total 0 ml 0 ml Balance 0 ml 0 ml Intake Oral 0 ml 0 ml # Voids 3 2 1 # Bowel Movements 0 0 0 Result Diagram: 04/06/17 0045 Objective Remarks - GENERAL: This is a well-nourished, well-developed patient, in no distress but non-typical pattern whole-body jerking movement SKIN: No rashes, warm and dry HEAD: Atraumatic. Normocephalic. EYES: Pupils equal round and reactive. Extraocular motions intact. No scleral icterus. ENT: Nose without bleeding, or drainage, Airway patent. NECK: Trachea midline. Supple CARDIOVASCULAR: Regular rate and rhythm without murmurs, gallops, or rubs. RESPIRATORY: Fair air entry bilaterally. No wheezes, rales, or rhonchi. GASTROINTESTINAL: Abdomen soft, non-tender, nondistended. Positive bowel sounds MUSCULOSKELETAL: Extremities without clubbing, cyanosis, or edema. Pedal pulses appreciated NEUROLOGICAL: Awake and alert. Moves all extremity. Normal speech.no focal neurological deficit A/P Problem List: (1) Hyperglycemia due to type 2 diabetes mellitus ICD Code: E11.65 - Type 2 diabetes mellitus with hyperglycemia Status: Acute (2) Accelerated hypertension ICD Code: I10 - Essential (primary) hypertension Status: Acute (3) Ischemic cerebrovascular accident (CVA) of frontal lobe ICD Code: I63.9 - Cerebral infarction, unspecified Status: Acute Assessment and Plan 66 y/o female with a history of HTN, HLD and DM, off medications for 1 year presented to the ED with slurred speech. CVA, patient with slurred speech Head CT reviewed and is unremarkable -Appreciate neurology consultation, unlikely stroke -MRI/MRA negative -2D echo reviewed personally by me EF 50-55%, mild MR -US carotids negative -ASA daily -PT/OT/ST We'll need to start statin, however due to increased transaminase and alkaline phosphatase we need to work up liver first Increased transaminase and alkaline phosphatase Patient mentioned history of fatty liver with biliary stenosis Consul GI, will need possibly CT of the abdomen, liver ultrasound was unremarkable, will check OLESYA, AMA, hepatitis panel Diabetes mellitus newly diagnosed, BS 340 on admission -Accu checks with SSI, will start insulin, possibly try to switch to oral by a PCP after discharge if A1c improved -HGB A1C 11.6 Uncontrolled HTN 224/88 today -Apply strict blood pressure control parameter -Start lisinopril 10 mg by mouth twice a day, Vasotec as needed and adjust accordingly -Monitor vitals Problem Qualifiers (1) Hyperglycemia due to type 2 diabetes mellitus: Qualified Codes: E11.65 - Type 2 diabetes mellitus with hyperglycemia Vitor Lunsford MD Apr 07, 2017 12:53
[2017-04-07 13:32] LABS: ANA SCREEN NEG (NEG)
[2017-04-07] MEDS ORDERED: ENALAPRILAT 1.25 MG/ML VIAL IV PUSH ONE (14:45)
[2017-04-07] MEDS ORDERED: LISINOPRIL 20 MG TAB PO ONE (14:45)
--- NOTE | 2017-04-07 16:40 | PD.CONS ---
HPI History of Present Illness This is a 66 year old female who presented to the emergency room as a stroke alert after she was in her normal state of health when she was speaking on the phone and suddenly had slurring of her words that lasted 30 minutes. Neurology was evaluated and the patient was evaluated with brain MRI, neck MRA, Carotid US , head CT, head MRA, lipid panel, EEG. They feel that this is unlikely a stroke , but recommend starting a statin for her elevated LDL once she has liver workup. The patient tells me that she has a history of fatty liver disease and has a long history of elevated LFTs. She was seen at a free clinic in [place] about 3 years ago and was told that she had elevated LFTs at that time. She was then hospitalized at [facility] about 2 years ago for gallstone pancreatitis. She underwent ERCP with stent placement at that time and subsequently had her gallbladder removed. She states that she never had a repeat ERCP with stent removal and she did not know that she needed to have it removed. Since having her gallbladder removed, she has had intermittent loose stool after meals. This is mild and only after eating. She otherwise denies any GI symptoms, no nausea, vomiting, abdominal pain, fever, chills. PFSH Past Medical History HTN DM Hyperlipidemia Fatty liver Gallstone pancreatitis Past Surgical History Common bile duct stent Cholecystectomy Back surgery x 2 elbow surgery hysterectomy from ectopic Bladder repair Seizures as a child Coded Allergies: nitrofurantoin (Verified Allergy, Intermediate, hives, 04/06/17) Penicillins (Verified Allergy, Unknown, 04/06/17) azithromycin (Verified Allergy, Unknown, 04/06/17) sulfamethoxazole (Verified Allergy, Unknown, 04/06/17) trimethoprim (Verified Allergy, Unknown, 04/06/17) Uncoded Allergies: erythromycin (Allergy, Intermediate, hives, 04/06/17) Medications Allergies Coded Allergies Type Severity Reaction Last Updated Verified nitrofurantoin Allergy Intermediate hives 04/06/17 Yes Penicillins Allergy Unknown 04/06/17 Yes azithromycin Allergy Unknown 04/06/17 Yes sulfamethoxazole Allergy Unknown 04/06/17 Yes trimethoprim Allergy Unknown 04/06/17 Yes Uncoded Allergies Type Severity Reaction Last Updated Verified erythromycin Allergy Intermediate hives 04/06/17 Active Scripts Medications Dose Route/Sig Max Daily Dose Days Date Category No Active Prescriptions or Reported Medications Rx Family History Sister breast cancer and ovarian cancer Social History Quit smoking 15 years ago Denies ETOH use Review of Systems Constitutional: DENIES: Fatigue, Fever, Weight loss, Chills Respiratory: DENIES: Cough Cardiovascular: DENIES: Chest pain Gastrointestinal: COMPLAINS OF: Diarrhea, DENIES: Abdominal pain, Black stools , Bloody stools, Constipation, Nausea, Vomiting, Heartburn, Hematemesis Hematologic/lymphatic: DENIES: Bruising Neurologic: DENIES: Headache Psychiatric: DENIES: Confusion GI Exam Vitals I&O Vital Signs Date Time Temp Pulse Resp B/P (MAP) Pulse Ox O2 Delivery O2 Flow Rate FiO2 04/07/17 13:50 192/88 (122) 04/07/17 12:10 96.4 89 19 224/88 (133) 95 04/07/17 11:24 97.2 62 19 170/72 (104) 93 Automatic Cuff 04/07/17 08:05 96.2 79 19 168/88 (114) 96 04/07/17 04:35 96.6 68 16 144/70 (94) 93 04/07/17 00:40 96.5 67 16 123/58 (79) 93 04/06/17 21:00 63 04/06/17 20:54 96 21 04/06/17 20:40 96.2 60 16 180/83 (115) 95 I/O 04/06/17 04/06/17 04/06/17 04/07/17 04/07/17 04/07/17 07:00 15:00 23:00 07:00 15:00 23:00 Intake Total 0 ml 0 ml 720 ml Balance 0 ml 0 ml 720 ml Intake Oral 0 ml 0 ml 720 ml # Voids 3 2 1 2 # Bowel Movements 0 0 0 0 Imaging Last Impressions Neck Magnetic Resonance Angiography 04/06/17912 Signed Impressions: Service Date/Time: March 19:23 - CONCLUSION: Minimal narrowing at the proximal left internal carotid artery without significant stenosis. Narayan Galan MD Brain MRI 04/06/17912 Signed Impressions: Service Date/Time: March 19:23 - CONCLUSION: 1. No intracranial abnormality is seen. 2. Maxillary sinus disease. Narayan Galan MD Liver Ultrasound 04/06/17 0000 Signed Impressions: Service Date/Time: March 14:39 - CONCLUSION: Focally unremarkable sonographic appearance of the liver Narayan Pham MD Head Magnetic Resonance Angiography 04/06/17 0000 Signed Impressions: Service Date/Time: March 19:23 - CONCLUSION: Normal examination. Narayan Galan MD Head CT 04/06/17 0000 Signed Impressions: Service Date/Time: March 00:55 - CONCLUSION: 1. No acute intracranial abnormalities. Findings called by Dr. Bolton to Dr. Riley at 1:06am. Hosea Bolton MD Carotid Artery Ultrasound 04/06/17 0000 Signed Impressions: Service Date/Time: March 08:36 - CONCLUSION: Mild bilateral plaque with no evidence of stenosis. Larry Christine MD Laboratory Test 04/07/17 07:52 Triglycerides Level 246 MG/DL Cholesterol Level 293 MG/DL LDL Cholesterol 201 MG/DL HDL Cholesterol 42.5 MG/DL Cholesterol/HDL Ratio 6.89 RATIO Physical Examination HEENT: Normocephalic; atraumatic; no jaundice. CHEST: CTA CARDIAC: RRR ABDOMEN: Soft, nondistended, nontender; no hepatosplenomegaly; bowel sounds are present in all four quadrants. EXTREMITIES: No clubbing, cyanosis, or edema. SKIN: Normal; no rash; no jaundice. ROLLING MACHINE TENDER: No focal deficits; alert and oriented times three. Assessment and Plan Plan ASSESSMENT: - Elevated transaminases. Do not have full lft panel, but AST 82, ALT 116. Pt states she has had elevated LFTs, fatty liver as far back as 3 years ago. She also reports that she was hospitalized at [facility] 2 years ago for GS Pancreatitis and underwent CBD stent placement and lap. marychuy- cystectomy at that time. She reports that she never had her stent removed. US (04/06/17)----> focally unremarkable sonographic appearance of the liver. I did call radiology and they reviewed US and although they did not see a stent, it is possibly that she does have one that was not visualized. Will get LFT. CT Scan abdomen and pelvis. Will order liver workup as well. - Neurological changes with slurred speech (resolved). Neurology following. S/ P brain MRI, neck MRA, Carotid US, head CT, head MRA, lipid panel, EEG. They feel that this is unlikely a stroke, but recommend starting a statin for her elevated LDL once she has liver workup. - HTN, DM, Hyperlipidemia per attending. PLAN: - [facility] - CT Scan abdomen and pelvis - LFT today and tomorrow - Hepatitis panel - OLESYA, ASMA, AMA - Ceruloplasmin, ALpha 1 antitrypsin. - Ferritin, Iron studies - Supportive care - Further recommendations to follow based on results of above - Pt seen and examined by Dr. Mas and myself and this note is written on his behalf Isabel Palma Apr 07, 2017 16:40
[2017-04-07] MEDS: LEVOFLOXACIN 500 MG PREMIX INJ 100 ML IV SCH (17:58)
[2017-04-07] MEDS ORDERED: DIATRIZOATE MEGLUM/DIATRIZOATE SOD 9 ML CUP PO ONE (18:30)
[2017-04-07 19:28] LABS: ALT (GPT) 97 U/L (10-53); ANION GAP 7 MEQ/L (5-15); AST (GOT) 57 U/L (15-37); BICARBONATE 27.8 MEQ/L (21.0-32.0); BLOOD UREA NITROGEN 9 MG/DL (7-18); CHLORIDE 102 MEQ/L (98-107); GLOMERULAR FILTRATION RATE 72 ML/MIN (>89); SODIUM (NA) 137 MEQ/L (136-145)
[2017-04-07 19:29] LABS: POTASSIUM 3.6 MEQ/L (3.5-5.1)
[2017-04-07 19:30] LABS: ALKALINE PHOSPHATASE 130 U/L (45-117); FERRITIN 293 NG/ML (8-252); INDIRECT BILIRUBIN 0.3 MG/DL (0.0-0.8); TOTAL BILIRUBIN ADULT 0.4 MG/DL (0.2-1.0); TRANSFERRIN 218 MG/DL (213-418); TRANSFERRIN IRON PROFILE 218 MG/DL (200-360)
[2017-04-08] VITALS (8 sets, daily range): BP systolic 144–194; BP diastolic 72–95; PULSE 54–66; RESP 17–20; TEMP 96.2–98.1; O2SAT 94–97
[2017-04-08] MEDS: SODIUM CHLOR 0.9% 1000 ML INJ 1,000 ML IV SCH ×2 (05:52→20:08)
[2017-04-08] MEDS: ENOXAPARIN SODIUM 40 MG/0.4 ML SYRINGE SQ SCH (06:15)
[2017-04-08] MEDS: INSULIN ASPART SUPPLEMENTAL SCALE SQ SCH ×4 (07:10→20:06)
[2017-04-08] MEDS ORDERED: DIATRIZOATE MEGLUM/DIATRIZOATE SOD 9 ML CUP PO ONE (09:00)
[2017-04-08] MEDS: SODIUM CHLORIDE 0.9% FLUSH 5 ML FLUSH IV FLUSH SCH ×2 (09:00→20:08)
[2017-04-08 09:41] LABS: INDIRECT BILIRUBIN 0.3 MG/DL (0.0-0.8); TOTAL BILIRUBIN ADULT 0.4 MG/DL (0.2-1.0)
[2017-04-08] MEDS: LISINOPRIL 20 MG TAB PO SCH (10:01)
[2017-04-08] MEDS: ASPIRIN EC 325 MG TABEC PO SCH (10:02)
--- NOTE | 2017-04-08 10:14 | HHI.GIFU ---
Subjective Remarks Patient is comfortable in bed awaiting to drink contrast for CT scan which is planned for today, Denies any GI issues for me (Lawanda Lambertasher WONG) Objective Vitals I&O Vital Signs Date Time Temp Pulse Resp B/P (MAP) Pulse Ox O2 Delivery O2 Flow Rate FiO2 04/08/17 08:05 96.2 58 18 171/83 (112) 95 04/08/17 04:00 97.5 54 20 160/95 (116) 95 04/08/17 00:00 98.1 65 20 160/80 (106) 96 04/07/17 20:00 97.9 63 20 150/79 (102) 94 04/07/17 19:00 Room Air 04/07/17 17:00 97.7 58 16 152/70 (97) 95 04/07/17 13:50 192/88 (122) 04/07/17 13:00 96 04/07/17 12:10 96.4 89 19 224/88 (133) 95 04/07/17 11:24 97.2 62 19 170/72 (104) 93 Automatic Cuff I/O 04/07/17 04/07/17 04/07/17 04/08/17 04/08/17 04/08/17 07:00 15:00 23:00 07:00 15:00 23:00 Intake Total 0 ml 1200 ml 899 ml 963 ml Balance 0 ml 1200 ml 899 ml 963 ml Intake Oral 0 ml 1200 ml 480 ml 480 ml IV Total 419 ml 483 ml # Voids 1 5 2 2 # Bowel Movements 0 1 Laboratory Laboratory Tests Test 04/07/17 18:23 04/08/17 07:21 Blood Urea Nitrogen 9 Creatinine 0.80 Random Glucose 224 Total Protein 7.1 6.2 Albumin 3.3 3.0 Calcium Level 9.3 Alkaline Phosphatase 130 107 Aspartate Amino Transf (AST/SGOT) 57 38 Alanine Aminotransferase (ALT/SGPT) 97 74 Total Bilirubin 0.4 0.4 Direct Bilirubin 0.1 0.1 Sodium Level 137 Potassium Level 3.6 Chloride Level 102 Carbon Dioxide Level 27.8 Anion Gap 7 Estimat Glomerular Filtration Rate 72 Iron Level 67 Total Iron Binding Capacity 305 Percent Iron Saturation 22.0 Transferrin 218 Ferritin 293 Indirect Bilirubin 0.3 0.3 Tumor Marker Alpha Fetoprotein 5.2 Imaging Last Impressions Neck Magnetic Resonance Angiography 04/06/17912 Signed Impressions: Service Date/Time: March 19:23 - CONCLUSION: Minimal narrowing at the proximal left internal carotid artery without significant stenosis. Narayan Galan MD Brain MRI 04/06/17912 Signed Impressions: Service Date/Time: March 19:23 - CONCLUSION: 1. No intracranial abnormality is seen. 2. Maxillary sinus disease. Narayan Galan MD Liver Ultrasound 04/06/17 Signed Impressions: Service Date/Time: March 14:39 - CONCLUSION: Focally unremarkable sonographic appearance of the liver Narayan Pham MD Head Magnetic Resonance Angiography 04/06/17 Signed Impressions: Service Date/Time: March 19:23 - CONCLUSION: Normal examination. Narayan Galan MD Head CT 04/06/17 Signed Impressions: Service Date/Time: March 00:55 - CONCLUSION: 1. No acute intracranial abnormalities. Findings called by Dr. Bolton to Dr. Riley at 1:06am. Hosea Bolton MD Carotid Artery Ultrasound 04/06/17 Signed Impressions: Service Date/Time: March 08:36 - CONCLUSION: Mild bilateral plaque with no evidence of stenosis. Larry Christine MD Physical Exam HEENT: Pupils round and reactive to light; normocephalic; atraumatic; no jaundice. NECK: Neck is supple, no JVD, no lymphadenopathy. CHEST: Chest is clear to auscultation and percussion. CARDIAC: Regular rate and rhythm with no murmur gallop or rubs. ABDOMEN: Soft, nondistended, nontender; no hepatosplenomegaly; bowel sounds are present in all four quadrants. EXTREMITIES: No clubbing, cyanosis, or edema. SKIN: Normal; no rash; no jaundice. [employer]: No focal deficits; alert and oriented times three. (Matthew Lambert) Assessment and Plan Plan ASSESSMENT: - Elevated transaminases. Trending down today AST 38, ALT 74, [id number], normal bili kaur. Pt states she has had elevated LFTs, fatty liver as far back as 3 years ago. She also reports that she was hospitalized at [facility] 2 years ago for GS Pancreatitis and underwent CBD stent placement and lap. marychuy- cystectomy at that time. She reports that she never had her stent removed. US (04/06/17)----> focally unremarkable sonographic appearance of the liver. CT Scan abdomen and pelvis pending. Liver work up pending OLESYA (-), % saturation 22.0, Fe 293, AFP5.2 - Neurological changes with slurred speech (resolved). Neurology following. S/ P brain MRI, neck MRA, Carotid US, head CT, head MRA, lipid panel, EEG. They feel that this is unlikely a stroke, but recommend starting a statin for her elevated LDL once she has liver workup. - HTN, DM, Hyperlipidemia per attending. PLAN: - MARIELLE - Await CT Scan abdomen and pelvis today - LFT today and tomorrow - Await Hepatitis panel - Await ASMA, AMA - Await Ceruloplasmin, ALpha 1 antitrypsin. - Supportive care - Further recommendations to follow based on results of above - Pt seen and examined by Dr. Mas and myself and this note is written on his behalf (Matthew Lambert) Plan The CT scan does not show any stent in the CBD. Also the PD is normal. Awaiting labs on liver. (Canelo Mas MD) Matthew Lambert Apr 08, 2017 10:14 Canelo Mas MD Apr 08, 2017 22:17
--- NOTE | 2017-04-08 12:03 | HHI.PR ---
Subjective Remarks Patient denied acute complain, follow up on neuro symptoms presentation/TIA, patient need to be on statin, however she had increase transaminase and alkaline phosphatase with history of biliary stent, GI consulted workup in process, today she is clinically stable no symptoms, no more shaking, no abdominal pain fever chills Objective Vitals Vital Signs Date Time Temp Pulse Resp B/P (MAP) Pulse Ox O2 Delivery O2 Flow Rate FiO2 04/08/17 08:05 96.2 58 18 171/83 (112) 95 04/08/17 04:00 97.5 54 20 160/95 (116) 95 04/08/17 00:00 98.1 65 20 160/80 (106) 96 04/07/17 20:00 97.9 63 20 150/79 (102) 94 04/07/17 19:00 Room Air 04/07/17 17:00 97.7 58 16 152/70 (97) 95 04/07/17 13:50 192/88 (122) 04/07/17 13:00 96 04/07/17 12:10 96.4 89 19 224/88 (133) 95 I/O 04/07/17 04/07/17 04/07/17 04/08/17 04/08/17 04/08/17 07:00 15:00 23:00 07:00 15:00 23:00 Intake Total 0 ml 1200 ml 899 ml 963 ml Balance 0 ml 1200 ml 899 ml 963 ml Intake Oral 0 ml 1200 ml 480 ml 480 ml IV Total 419 ml 483 ml # Voids 1 5 2 2 # Bowel Movements 0 1 Result Diagram: 04/06/17 0045 04/07/17 1823 Imaging Last Impressions Neck Magnetic Resonance Angiography 04/06/17912 Signed Impressions: Service Date/Time: March 19:23 - CONCLUSION: Minimal narrowing at the proximal left internal carotid artery without significant stenosis. Narayan Galan MD Brain MRI 04/06/17912 Signed Impressions: Service Date/Time: March 19:23 - CONCLUSION: 1. No intracranial abnormality is seen. 2. Maxillary sinus disease. Narayan Galan MD Liver Ultrasound 04/06/17 0000 Signed Impressions: Service Date/Time: March 14:39 - CONCLUSION: Focally unremarkable sonographic appearance of the liver Narayan Pham MD Head Magnetic Resonance Angiography 04/06/17 0000 Signed Impressions: Service Date/Time: March 19:23 - CONCLUSION: Normal examination. Narayan Galan MD Head CT 04/06/17 0000 Signed Impressions: Service Date/Time: March 00:55 - CONCLUSION: 1. No acute intracranial abnormalities. Findings called by Dr. Bolton to Dr. Riley at 1:06am. Hosea Bolton MD Carotid Artery Ultrasound 04/06/17 0000 Signed Impressions: Service Date/Time: March 08:36 - CONCLUSION: Mild bilateral plaque with no evidence of stenosis. Larry Christine MD Objective Remarks - GENERAL: This is a well-nourished, well-developed patient, in no distress SKIN: No rashes, warm and dry HEAD: Atraumatic. Normocephalic. EYES: Pupils equal round and reactive. Extraocular motions intact. No scleral icterus. ENT: Nose without bleeding, or drainage, Airway patent. NECK: Trachea midline. Supple CARDIOVASCULAR: Regular rate and rhythm without murmurs, gallops, or rubs. RESPIRATORY: Fair air entry bilaterally. No wheezes, rales, or rhonchi. GASTROINTESTINAL: Abdomen soft, non-tender, nondistended. Positive bowel sounds MUSCULOSKELETAL: Extremities without clubbing, cyanosis, or edema. Pedal pulses appreciated NEUROLOGICAL: Awake and alert. Moves all extremity. Normal speech.no focal neurological deficit A/P Problem List: (1) Hyperglycemia due to type 2 diabetes mellitus ICD Code: E11.65 - Type 2 diabetes mellitus with hyperglycemia Status: Acute (2) Accelerated hypertension ICD Code: I10 - Essential (primary) hypertension Status: Acute (3) Ischemic cerebrovascular accident (CVA) of frontal lobe ICD Code: I63.9 - Cerebral infarction, unspecified Status: Acute Assessment and Plan 66 y/o female with a history of HTN, HLD and DM, off medications for 1 year presented to the ED with slurred speech. CVA, patient with slurred speech Head CT reviewed and is unremarkable -Appreciate neurology consultation, unlikely stroke -MRI/MRA negative -2D echo reviewed personally by me EF 50-55%, mild MR -US carotids negative -ASA daily -PT/OT/ST We'll need to start statin, however due to increased transaminase and alkaline phosphatase we need to work up liver first Increased transaminase and alkaline phosphatase Patient mentioned history of fatty liver with biliary stenosis Appreciate GI consultation, CT of the abdomen ordered, liver ultrasound was unremarkable, pending OLESYA, AMA, hepatitis panel Diabetes mellitus newly diagnosed, BS 340 on admission -Accu checks with SSI, dark Levemir 15 units daily at bedtime, possibly try to switch to oral by a PCP after discharge if A1c improved -HGB A1C 11.6 Uncontrolled HTN -Apply strict blood pressure control parameter -On lisinopril 40 mg daily started 04/08, Vasotec as needed and adjust accordingly, consider adding further antihypertensive agent if blood pressure still not optimized -Monitor vitals Problem Qualifiers (1) Hyperglycemia due to type 2 diabetes mellitus: Qualified Codes: E11.65 - Type 2 diabetes mellitus with hyperglycemia Vitor Lunsford MD Apr 08, 2017 12:03
[2017-04-08] MEDS ORDERED: IOHEXOL 350 MG/ML 10 ML VIAL (for RAD DIAG) IVCONTRAST ONE (17:29)
--- NOTE | 2017-04-08 17:40 | RADRPT ---
EXAM DATE/TIME: 04/08/2017 17:21 [place] COMPARISON: No previous studies available for comparison. INDICATIONS : Abdomen pain. IV CONTRAST: 100 cc Omnipaque 350 (iohexol) IV ORAL CONTRAST: No oral contrast ingested. RADIATION DOSE: 9.96 CTDIvol (mGy) MEDICAL HISTORY : Deep venous thrombosis. Hypertension. SURGICAL HISTORY : Cholecystectomy. back, bladder ENCOUNTER: Initial ACUITY: 1 day PAIN SCALE: 5/10 LOCATION: Bilateral abdomen. TECHNIQUE: Volumetric scanning of the abdomen and pelvis was performed. Using automated exposure control and ad justment of the mA and/or kV according to patient size, radiation dose was kept as low as reasonably achievable to obtain optimal diagnostic quality images. DICOM format image data is available electro nically for review and comparison. FINDINGS: The lung base is are clear. The liver, spleen and pancreas are unremarkable. The gallbladder is surgically absent without intrahepatic delayed ductal dilatation There is symmetrical renal function The region of the cecum and terminal ileum unremarkable. There is no ascites or adenopathy appreciat ed. There are diverticuli in the sigmoid colon without diverticulitis. Subcutaneous air is seen abdomina l wall possibly related to insulin injections. Review of bone windows reveals transpedicular fixation in the lumbar spine from an anterior approach. SI joints are normal. CONCLUSION: Minimal nonspecific findings. Liver is unremarkable with normal common duct. Vlad Watters MD FACR on April 08, 2017 at 17:35 Board Certified Radiologist. This report was verified electronically.
--- NOTE | 2017-04-08 17:49 | HM ---
Date Performed: 04/07/2017 Time Performed: 10:46:00 HOOKUP DATE: 04/07/17 10:46:00 AM Fri ANALYSIS START TIME: 04/07/2017 10:51:00 AM ANALYSIS END TIME: 04/08/2017 10:54:59 AM PATIENT AGE: 66 PATIENT HEIGHT PATIENT WEIGHT DRUG LIST PATIENT DIAGNOSIS: CVA/Afib TEST NARRATIVE: The patient's average heart rate was 68 BPM. Heart rates greater than 120 B PM were noted 2% of the time. Heart rates less than 50 BPM were noted 2% of the time. No pauses exceeding 2.0 seconds were noted. 121 ventricular ectopics, which represented < 1% of the total b eat count, were noted. The highest ventricular ectopic frequency occurred from 12:00 AM to 01:00 AM Sat. During this time 24 VE(s) occurred. Ventricular ectopics were observed as 121 isolated beat(s) only. No couplets or runs were noted. 121 supraventricular ectopics, which represented < 1% of the total beat count, were noted. The highest supraventricular ectopic frequency occurred from 05:00 PM to 06:00 PM Fri. During this time 16 SVE(s) occurred. No episodes of ST depression (defined as -1.0 mm or more) were noted in channel 1. No episodes of ST depression (defined as -1.0 mm or mor e) were noted in channel 2. No episodes of ST depression (defined as -1.0 mm or more) were noted in channel 3. TEST INTERPRETATION: Sinus rhythm sinus tachycardia probable nonsustained SVT (150 bpm) Occasional PACs and short atrial runs Signed by : Davy Aguilar
[2017-04-08] MEDS: LEVOFLOXACIN 500 MG PREMIX INJ 100 ML IV SCH (18:00)
[2017-04-08] MEDS ORDERED: INSULIN DETEMIR 100 UNITS/ML VIAL SQ SCH (21:00)
[2017-04-08] MEDS: ENALAPRILAT 1.25 MG/ML VIAL IV PUSH PRN (21:20)
[2017-04-09] VITALS: BP 158/68; PULSE 61; RESP 18; TEMP 97.3; O2SAT 95
[2017-04-09 04:00] VITALS: BP 134/52; PULSE 60; RESP 18; TEMP 97; O2SAT 97
[2017-04-09] MEDS: ENOXAPARIN SODIUM 40 MG/0.4 ML SYRINGE SQ SCH (05:10)
[2017-04-09] MEDS: SODIUM CHLOR 0.9% 1000 ML INJ 1,000 ML IV SCH (05:10)
[2017-04-09] MEDS: INSULIN ASPART SUPPLEMENTAL SCALE SQ SCH ×2 (06:14→11:00)
[2017-04-09 07:22] LABS: INDIRECT BILIRUBIN 0.3 MG/DL (0.0-0.8); TOTAL BILIRUBIN ADULT 0.4 MG/DL (0.2-1.0)
[2017-04-09 08:05] VITALS: BP 132/70; PULSE 56; RESP 18; TEMP 98.2; O2SAT 94
[2017-04-09] MEDS: SODIUM CHLORIDE 0.9% FLUSH 5 ML FLUSH IV FLUSH SCH (09:00)
[2017-04-09] MEDS: ASPIRIN EC 325 MG TABEC PO SCH (09:49)
[2017-04-09] MEDS: LISINOPRIL 20 MG TAB PO SCH (09:49)
--- NOTE | 2017-04-09 10:47 | HHI.GIFU ---
Subjective Remarks Pt reports feeling fine. She is ready to go home. CT did not show any stent in the bile duct. Pancreas is OK too. Denies any abdominal pain. LFTs are elevated minimally and labs are pending. She can go home today and followup in office at [facility] in two weeks. Objective Vitals I&O Vital Signs Date Time Temp Pulse Resp B/P (MAP) Pulse Ox O2 Delivery O2 Flow Rate FiO2 04/09/17 08:05 98.2 56 18 132/70 (90) 94 04/09/17 04:00 97.0 60 18 134/52 (79) 97 04/09/17 00:00 97.3 61 18 158/68 (98) 95 04/08/17 20:03 62 04/08/17 20:00 97.6 64 18 168/74 (105) 96 04/08/17 17:40 94 21 04/08/17 16:00 96.9 62 17 144/72 (96) 97 04/08/17 11:09 96.6 66 18 194/79 (117) 94 I/O 04/08/17 04/08/17 04/08/17 04/09/17 04/09/17 04/09/17 07:00 15:00 23:00 07:00 15:00 23:00 Intake Total 963 ml 1200 ml 480 ml 1065 ml Balance 963 ml 1200 ml 480 ml 1065 ml Intake Oral 480 ml 1200 ml 480 ml 240 ml IV Total 483 ml 825 ml # Voids 2 8 1 1 # Bowel Movements 0 0 0 Laboratory Laboratory Tests Test 04/09/17 06:00 Total Bilirubin 0.4 Direct Bilirubin 0.1 Indirect Bilirubin 0.3 Aspartate Amino Transf (AST/SGOT) 29 Alanine Aminotransferase (ALT/SGPT) 61 Alkaline Phosphatase 96 Total Protein 5.9 Albumin 2.8 Physical Exam HEENT: Pupils round and reactive to light; normocephalic; atraumatic; no jaundice. NECK: Neck is supple, no JVD, no lymphadenopathy. CHEST: Chest is clear to auscultation and percussion. CARDIAC: Regular rate and rhythm with no murmur gallop or rubs. ABDOMEN: Soft, nondistended, nontender; no hepatosplenomegaly; bowel sounds are present in all four quadrants. EXTREMITIES: No clubbing, cyanosis, or edema. SKIN: Normal; no rash; no jaundice. BOAT HOP: No focal deficits; alert and oriented times three. Assessment and Plan Plan Patient is ready for discharge. Abnormal LFTs probably due to fatty liver. Awaiting labs. Rec: discharge today Followuup in office in two weeks. Regular diet. Canelo Mas MD Apr 09, 2017 10:47
[2017-04-09 12:00] VITALS: BP 138/74; PULSE 65; RESP 18; TEMP 96; O2SAT 95
[2017-04-09] MEDS ORDERED: METF1000 PO (15:01)
[2017-04-09] MEDS ORDERED: LANCETS1 MI1 ×2 (15:01→15:03)
[2017-04-09] MEDS ORDERED: GLIP5TAB8 PO (15:01)
[2017-04-09] MEDS ORDERED: GLUCTES12 (15:03)
[2017-04-09] MEDS ORDERED: INSU1MIS15 (15:06)
--- NOTE | 2017-04-09 15:07 | HHI.DCPOC ---
Discharge Care Plan Diagnosis: (1) TIA (transient ischemic attack) (2) Hyperglycemia due to type 2 diabetes mellitus Goals to Promote Your Health * To prevent worsening of your condition and complications * To maintain your health at the optimal level Directions to Meet Your Goals Take your medications as prescribed Follow your dietary instruction Follow activity as directed Keep your appointments as scheduled Take your immunizations and boosters as scheduled If your symptoms worsen call your PCP, if no PCP go to Urgent Care Center or Emergency Room Smoking is Dangerous to Your Health. Avoid second hand smoke Call the 24-hour hour crisis hotline for domestic abuse at Marcio Hdez MD Apr 09, 2017 15:07
[2017-04-09] MEDS ORDERED: LISI40TA PO (15:08)
[2017-04-09] MEDS ORDERED: ASPI81CH CHEW (15:13)
[2017-04-09] MEDS ORDERED: ATOR40TA16 PO (15:13)
--- NOTE | 2017-04-09 15:51 | HHI.DS ---
Discharge Summary Admission Date Apr 06, 2017 at 04:15 Discharge Date: Apr 09, 2017 Admitting Diagnosis Acute ischemic CVA (1) Hyperglycemia due to type 2 diabetes mellitus ICD Code: E11.65 - Type 2 diabetes mellitus with hyperglycemia Status: Acute (2) Accelerated hypertension ICD Code: I10 - Essential (primary) hypertension Status: Chronic Procedures none Brief History - From Admission Written by MARVIN Mendes acting as scribe for [Andre] on 04/06/17 at 04: 01. 66 y/o female with a history of HTN, HLD and DM, off medications for 1 year presented to the ED with slurred speech. She states about 11:30 tonight she began to have slurred speech and tingling in her cheeks. She states recently she has had pain in her right eye, intermittently, but no vision loss. She denies any weakness in her extremities, chest pain, sob, fever or chills. She states she moved here 1 year ago and that is when she stopped taking all her medications. CBC/BMP: 04/06/17 0045 04/09/17 0600 Significant Findings Laboratory Tests Test 04/07/17 07:52 04/07/17 18:23 04/08/17 07:21 04/09/17 06:00 Triglycerides Level 246 MG/DL (42-150) Cholesterol Level 293 MG/DL (120-200) LDL Cholesterol 201 MG/DL (0-99) Random Glucose 224 MG/DL (74-106) Albumin 3.3 GM/DL (3.4-5.0) 3.0 GM/DL (3.4-5.0) 2.8 GM/DL (3.4-5.0) Alkaline Phosphatase 130 U/L (45-117) Aspartate Amino Transf (AST/SGOT) 57 U/L (15-37) 38 U/L (15-37) Alanine Aminotransferase (ALT/SGPT) 97 U/L (10-53) 74 U/L (10-53) 61 U/L (10-53) Estimat Glomerular Filtration Rate 72 ML/MIN (>89) 84 ML/MIN (>89) Ferritin 293 NG/ML (8-252) Total Protein 6.2 GM/DL (6.4-8.2) 5.9 GM/DL (6.4-8.2) PE at Discharge Gen.: No acute distress Neuro: No cranial nerve obvious deficits, no facial droop, no slurred speech, tongue in midline, alert oriented 3 MSK: 5 out of 5 proximal bilateral upper extremity strength including fistgrip Hospital Course Patient was admitted, had a stroke workup which was unremarkable including a MRI of the brain which showed no acute infarcts. Echo was unremarkable along with carotid imaging. H monitor review showed no signs of ventricular tachycardia, just occasional nonsustained SVT and some atrial contractions Her LFTs are slightly elevated, therefore hepatic panel was obtained which was negative, GI was consulted, performed CT imaging which did not show any stent ( patient reported having biliary stent placed in the past). OTC trended downwards to stable levels. Patient is completely asymptomatic from GI symptoms , was deemed stable for discharge from neurological and gastrointestinal standpoint. she verbalized understanding the importance for kidding new primary care doctor as soon as possible to control her uncontrolled diabetes. Patient was initially placed on the biotics for possible UTI but she denies having any worsening of her chronic back pain or any new onset dysuria since admission - therefore she was not discharged on antibiotics. . Patient understood that her sugars were still in the 200s on her last day of discharge, but that this would get better with starting metformin and glipizide in addition to continuing insulin at home. Patient has been maximal benefit from hospitalization and is clinically stable for discharge Pt Condition on Discharge: Stable Discharge Disposition: Discharge Home Discharge Time: > 30 minutes Discharge Instructions DIET: Follow Instructions for: Diabetic Diet Activities you can perform: See Additionl Instruction Other Activity Instructions: page Dr. Koehler, if ok with him from neurology standpoint, discharge patient with any activity restrictions recs from him Follow up Referrals: Gastroenterology - 2 Weeks @ [facility] PCP Follow-up - 1 Week New Medications: Aspirin (Aspirin) 81 Mg Chew 81 MG CHEW DAILY for cholesterol, #30 TAB 0 Refills Atorvastatin (Atorvastatin) 40 Mg Tab 40 MG PO HS for Cholesterol Management, #30 TAB 0 Refills Glipizide (Glipizide) 5 Mg Tab 5 MG PO DAILY for Blood Sugar Management, #30 TAB 0 Refills Take 30 minutes before a meal Glucocom Test Strips (Glucocom Test Strips) 1 Tabitha Tabitha BOX .ROUTE DIRECTED for Blood Sugar Management, #1 Check sugars twice a day before meals Insulin Syringe/U-100/31G X 5/16" 1 ml (Insulin Syringe/U-100/31G X 5/16" 1 ml) 31 Gauge X 5/16" Mis EA .ROUTE DIRECTED for Blood Sugar Management, #30 0 Refills Lancets (Lancets) 1 Mis Mis EACH .ROUTE DIRECTED for Blood Sugar Management, #30 0 Refills Lancets (Lancets) 1 Mis Mis BOX .ROUTE DIRECTED for Blood Sugar Management, #1 0 Refills Check sugars twice a day before meals Lisinopril (Lisinopril) 40 Mg Tab 40 MG PO DAILY for Blood Pressure Management, #30 TAB 0 Refills Metformin (Metformin) 1,000 Mg Tab 1000 MG PO DAILY for Blood Sugar Management, #60 TAB 0 Refills With meals Marcio Hdez MD Apr 09, 2017 15:51
[2017-04-09 17:45] VITALS: O2SAT 95
[2017-04-09] MEDS ORDERED: GLUCKIT15 (18:45)
== END 2017-04-09 18:22 | disposition home or self-care (01) | DRG 69 ==
LOC: NEPC 00:44 → NEDA 02:08 → INTOOBSV 02:13 → UNDOADMOB 02:13 → OBSVTOIN 04:15 → NEPGCP 04:24 → N06B 06:42
PROVIDERS: ADMIT Hospitalist; ATTEND Hospitalist
DX: G45.9 Transient cerebral ischemic attack, unspecified (principal); E11.65 Type 2 diabetes mellitus with hyperglycemia; K76.0 Fatty (change of) liver, not elsewhere classified; N39.0 Urinary tract infection, site not specified; I10 Essential (primary) hypertension; R47.81 Slurred speech; F41.9 Anxiety disorder, unspecified; R25.1 Tremor, unspecified; E78.00 Pure hypercholesterolemia, unspecified; R74.0 Nonspecific elevation of levels of transaminase and lactic acid dehydrogenase [LDH]; Z87.891 Personal history of nicotine dependence; Z80.3 Family history of malignant neoplasm of breast; Z80.41 Family history of malignant neoplasm of ovary
CPT/HCPCS: 70450; 70544; 70548; 70553; 74177; 76705; 76937; 80048; 80061; 80074; 80076; 80307; 81001; 82103; 82105; 82390; 82435; 82550; 82565; 82607; 82728; 82947; 82948; 83036; 83520; 83540; 83550; 84132; 84295; 84425; 84439; 84443; 84450; 84460; 84466; 84484; 84520; 85007; 85027; 85384; 85610; 85652; 85730; 86038; 86255; 86592; 93005; 93225; 93226; 93306; 93880; 95819; 96361; 96374; A9579; J1650; J1815; J1956; J7030; Q9963; Q9967

== ENCOUNTER 2017-07-07 11:46 | Emergency (ER) | payer OTHER, MEDICAID ==
[~2017-07-07] VITALS: Ht 170.2 cm; Wt 100.0 kg
[~2017-07-07 11:46] MED LIST: ASPI-516 CHEW; ATOR40TA16 PO; GLIP5TAB8 PO; GLUCKIT15; GLUCTES12; INSU1MIS15; LANCETS1 MI1; LISI40TA PO; METF1000 PO
[2017-07-07 11:48] VITALS: BP 200/91; PULSE 86; RESP 16; TEMP 98.3; O2SAT 97
--- NOTE | 2017-07-07 12:12 | PD ---
HPI Chief Complaint: Diabetic Time Seen by Provider: 12:01 Travel History International Travel<30 days: No Contact w/Intl Traveler<30days: No Traveled to known affect area: No History of Present Illness HPI PATIENT STATES THAT SHE HAS BEEN OUT OF MEDICATION FOR WEEKS AND IS HERE FOR REFILL, WHILE HERE SHE WAS NOTED TO HAVE HIGH BLOOD PRESSURE WELL BLOOD SUGAR 228 AT TRIAGE....PT DENIES PRAJAPATI/VISUAL DISTURBANCE/N/V/D/CP/ABDPAIN/BACK PAIN PFSH Past Medical History Asthma: Yes Blood Disorders: No Depression: Yes Cancer: No Cardiovascular Problems: No High Cholesterol: Yes COPD: Yes Cerebrovascular Accident: Yes (TIA MAR 2017) Diabetes: Yes Patient Takes Glucophage: Yes Deep Vein Thrombosis: Yes Endocrine: Yes Hypertension: Yes Musculoskeletal: No Neurologic: No Psychiatric: Yes Reproductive: No Menopausal: Yes Past Surgical History Other Surgery: Yes (bladder repair, hyst back surg x 3, lap marychuy) Social History Alcohol Use: No Tobacco Use: No Substance Use: No Allergies-Medications (Allergen,Severity, Reaction): Coded Allergies: nitrofurantoin (Verified Allergy, Intermediate, hives, 04/06/17) Penicillins (Verified Allergy, Unknown, 04/06/17) azithromycin (Verified Allergy, Unknown, 04/06/17) sulfamethoxazole (Verified Allergy, Unknown, 04/06/17) trimethoprim (Verified Allergy, Unknown, 04/06/17) Uncoded Allergies: erythromycin (Allergy, Intermediate, hives, 04/06/17) Reported Meds & Prescriptions Reported Meds & Active Scripts Active Glucocom Blood Glucose Mo W/Device (Device) 1 Kit Kit Kit .ROUTE DIRECTED Atorvastatin (Atorvastatin Calcium) 40 Mg Tab 40 Mg PO HS Aspirin 81 Mg Chew 81 Mg CHEW DAILY Lisinopril 40 Mg Tab 40 Mg PO DAILY Insulin Syringe/U-100/31G X 12/20" 1 ml 31 Gauge X 12/20" Mis Ea .ROUTE DIRECTED Glucocom Test Strips (Blood Glucose Test Strips) 1 Tabitha Tabitha Box .ROUTE DIRECTED Check sugars twice a day before meals Lancets 1 Mis Mis Box .ROUTE DIRECTED Check sugars twice a day before meals Glipizide 5 Mg Tab 5 Mg PO DAILY Take 30 minutes before a meal Metformin (Metformin HCl) 1,000 Mg Tab 1,000 Mg PO DAILY With meals Lancets 1 Mis Mis Each .ROUTE DIRECTED Review of Systems Except as stated in HPI: all other systems reviewed are Neg Physical Exam Narrative GENERAL: SKIN: Warm and dry. HEAD: Atraumatic. Normocephalic. EYES: Pupils equal and round. No scleral icterus. No injection or drainage. ENT: No nasal bleeding or discharge. Mucous membranes pink and moist. NECK: Trachea midline. No JVD. CARDIOVASCULAR: Regular rate and rhythm. RESPIRATORY: No accessory muscle use. Clear to auscultation. Breath sounds equal bilaterally. GASTROINTESTINAL: Abdomen soft, non-tender, nondistended. MUSCULOSKELETAL: Extremities without clubbing, cyanosis, or edema. No obvious deformities. NEUROLOGICAL: Awake and alert. No obvious cranial nerve deficits. Motor grossly within normal limits. Five out of 5 muscle strength in the arms and legs. Normal speech. PSYCHIATRIC: Appropriate mood and affect; insight and judgment normal. Data Data Last Documented VS Vital Signs Date Time Temp Pulse Resp B/P (MAP) Pulse Ox O2 Delivery O2 Flow Rate FiO2 07/07/17 12:14 71 19 224/88 (133) 96 Room Air 07/07/17 11:48 98.3 Orders Orders Comprehensive Metabolic Panel (07/07/17 12:07) Iv Access Insert/Monitor (07/07/17 12:07) Ecg Monitoring (07/07/17 12:07) Oximetry (07/07/17 12:07) Enalaprilat Inj (Vasotec Inj) (07/07/17 12:15) Blood Gas Venous Ph (07/07/17 12:13) Labs Laboratory Tests Test 07/07/17 12:15 07/07/17 12:24 Blood Urea Nitrogen 11 MG/DL Creatinine 0.85 MG/DL Random Glucose 205 MG/DL Total Protein 7.9 GM/DL Albumin 4.0 GM/DL Calcium Level 9.3 MG/DL Alkaline Phosphatase 120 U/L Aspartate Amino Transf (AST/SGOT) 28 U/L Alanine Aminotransferase (ALT/SGPT) 51 U/L Total Bilirubin 0.4 MG/DL Sodium Level 137 MEQ/L Potassium Level 3.6 MEQ/L Chloride Level 102 MEQ/L Carbon Dioxide Level 30.7 MEQ/L Anion Gap 4 MEQ/L Estimat Glomerular Filtration Rate 67 ML/MIN Venous Blood pH 7.41 [facility] Medical Decision Making Medical Screen Exam Complete: Yes Emergency Medical Condition: Yes Medical Record Reviewed: Yes Differential Diagnosis RENAL FAILURE V ELECTROLYTE ABNL Narrative Course HYPERGLYCEMIA WITHOUT DKA, NO ELECTROLYTE ABNL, NO E/O RENAL FAILURE...PATIENT HAS A FOLLOW UP WITH [facility] OUTPATIENT Diagnosis Primary Impression: Hypertension Qualified Codes: I10 - Essential (primary) hypertension Additional Impression: HYPERGLYCEMIA Patient Instructions: Diabetic Hyperglycemia (ED), General Instructions, Hypertension (ED), Medication Refill, ED Scripts Lisinopril (Lisinopril) 40 Mg Tab 40 MG PO DAILY for Blood Pressure Management, #30 TAB 1 Refill Prov: Renato Lynch MD 07/07/17 Glipizide (Glipizide) 5 Mg Tab 5 MG PO DAILY for Blood Sugar Management, #30 TAB 1 Refill Take 30 minutes before a meal Prov: Renato Lynch MD 07/07/17 Metformin (Metformin) 1,000 Mg Tab 1000 MG PO BIDPC for Blood Sugar Management, #60 TAB 1 Refill Prov: Renato Lynch MD 07/07/17 Atorvastatin (Atorvastatin) 40 Mg Tab 40 MG PO HS for Cholesterol Management, #30 TAB 1 Refill Prov: Renato Lynch MD 07/07/17 Disposition: 01 DISCHARGE HOME Condition: Stable Renato Lynch MD Jul 07, 2017 12:12
[2017-07-07 12:14] VITALS: BP 224/88; PULSE 71; RESP 19; O2SAT 96
[2017-07-07] MEDS ORDERED: ENALAPRILAT 2.5 MG/2 ML VIAL IV PUSH ONE (12:15)
[2017-07-07 12:59] LABS: ALT (GPT) 51 U/L (10-53); ANION GAP 4 MEQ/L (5-15); AST (GOT) 28 U/L (15-37); BICARBONATE 30.7 MEQ/L (21.0-32.0); BLOOD UREA NITROGEN 11 MG/DL (7-18); CHLORIDE 102 MEQ/L (98-107); GLOMERULAR FILTRATION RATE 67 ML/MIN (>89); POTASSIUM 3.6 MEQ/L (3.5-5.1); SODIUM (NA) 137 MEQ/L (136-145)
[2017-07-07 13:01] LABS: ALKALINE PHOSPHATASE 120 U/L (45-117); TOTAL BILIRUBIN ADULT 0.4 MG/DL (0.2-1.0)
[2017-07-07 13:22] VITALS: BP 176/76; PULSE 62; RESP 21; O2SAT 98
[2017-07-07] MEDS ORDERED: ATOR40TA16 PO (13:27)
[2017-07-07] MEDS ORDERED: METF1000 PO (13:28)
[2017-07-07] MEDS ORDERED: GLIP5TAB8 PO (13:28)
[2017-07-07] MEDS ORDERED: LISI40TA PO (13:28)
== END 2017-07-07 14:25 | disposition home or self-care (01) ==
LOC: NEPE 11:46
DX: I10 Essential (primary) hypertension (principal); R73.9 Hyperglycemia, unspecified; F32.9 Major depressive disorder, single episode, unspecified; E78.00 Pure hypercholesterolemia, unspecified; J44.9 Chronic obstructive pulmonary disease, unspecified; Z86.73 Personal history of transient ischemic attack (TIA), and cerebral infarction without residual deficits; E11.9 Type 2 diabetes mellitus without complications; Z86.718 Personal history of other venous thrombosis and embolism; Z79.82 Long term (current) use of aspirin
CPT/HCPCS: 80053; 82800; 96374